=== PATIENT | female | born 1980 | race Caucasian/White ===

== ENCOUNTER 2016-07-08 16:06 | Emergency (ER) | payer BC ==
[~2016-07-08] VITALS: Ht 170.2 cm; Wt 58.1 kg
[~2016-07-08 16:06] MED LIST: CIPROFLOXACIN500 M2 ORAL
[2016-07-08] MEDS ORDERED: WP THYROID81.25 MG PO (17:19)
[2016-07-08] MEDS ORDERED: IBUPROFEN600 MG ORAL (17:57)
[2016-07-08 18:11] VITALS: BP 95/64
--- NOTE | 2016-07-08 21:52 | Emergency Room Report ---
History of Present Illness General Chief Complaint: Laceration Source: Patient, Medical Record Present Illness HPI The patient is a 36-year-old female presenting with left fourth finger laceration which occurred last night. The patient states that she was cutting in the kitchen and the knife slipped. Patient noticed bleeding to the area. Pain is now describes a 4/10 dull ache and does not radiate. Pain worse with touch. Patient does admit to slight numbness to the area. The patient denies prior injury to this area. Patient denies any other injury or any other symptoms including N, V, F, chills Allergies: Coded Allergies: SULFA (SULFONAMIDE ANTIBIOTICS) (Verified Allergy, Unknown, 07/08/16) Patient History Past Medical History: see triage record Pertinent Family History: none Last Menstrual Period: 06/18/2016 Now: No : 0 Para: 0 Reviewed Nursing Documentation: PMH: Agreed, PSxH: Agreed Review of Systems All Other Systems: negative except mentioned in HPI Physical Exam Vital Signs Date Time Temp Pulse Resp B/P Pulse Ox O2 Delivery O2 Flow Rate FiO2 07/08/16 17:13 98.1 66 16 112/71 100 Room Air Sp02 EP Interpretation: reviewed, normal General Appearance: no apparent distress, alert, GCS 15, non-toxic Head: normocephalic, atraumatic Eyes: bilateral eye PERRL, bilateral eye normal inspection ENT: hearing grossly normal, normal pharynx, no angioedema, normal voice Neck: full range of motion, supple/symm/no masses Musculoskeletal: back normal, gait/station normal, normal range of motion, non- tender, tender - TTP over the L 4th digit Neurologic: alert, oriented x3, responsive, motor strength/tone normal, sensory intact, speech normal Psychiatric: judgement/insight normal, memory normal, mood/affect normal, no suicidal/homicidal ideation Skin: laceration - 1cm linear laceration to distal 4th digit palmar surface Lymphatic: no adenopathy Procedures Laceration/Wound Repair Laceration/Wound Repair : Consent: Verbal Wound Location: upper extremity Wound's Depth, Shape: superficial Wound Length (cm): 1 Wound Explored: clean Irrigated w/ Saline (ccs): 100 Betadine Prep?: Yes Wound Debrided: minimal Wound Repaired With: Dermabond Layer Closure?: No Sterile Dressing Applied?: Yes Splint Applied?: No Sling Applied?: No Patient Tolerated: Well Complications: None Medical Decision Making PA Attestation Dr. Siu is my supervising physician. Patient management was discussed with my supervising physician Diagnostic Impression: Primary Impression: Laceration of finger ER Course The patient is a 36-year-old female presenting with left fourth finger laceration which occurred last night. Ddx considered include but not limited to fracture, tendon/ligament injury, avulsion, nerve damage Physical exam: Vitals are within normal limits. No apparent distress Left fourth digit: Is a 1 cm linear laceration to the distal palmar surface. Sensation intact to light touch. Tender to palpation over this area. No bleeding. The wound is cleaned thoroughly with Betadine and normal saline. Was repaired with Dermabond. Well approximated. The patient is given a prescription for Motrin and will follow up with PMD. Patient will keep the wound clean and dry. ER precautions Last Vital Signs Date Time Temp Pulse Resp B/P Pulse Ox O2 Delivery O2 Flow Rate FiO2 07/08/16 18:11 98.4 71 17 95/64 100 Room Air Status: improved Disposition: HOME, SELF-CARE Condition: Improved Scripts Ibuprofen* (MOTRIN*) 600 Mg Tablet 600 MG ORAL Q8H Y for For Pain, #30 TAB 0 Refills Prov: ANDREW DHILLON 07/08/16 Referrals: NON PHYSICIAN (PCP) Patient Instructions: Tissue Adhesive Wound Care Additional Instructions: I discussed my findings with the patient. All questions and concerns have been answered. Treatment and medication compliance have been addressed. I advised the patient that they need to follow up with PMD in 3-5 days. Return to ED if symptoms worsen, new symptoms arise, or if needed for any reason. Patient verbalized understanding of discharge instructions. ANDREW DHILLON Jul 08, 2016 21:52
== END 2016-07-08 18:10 | disposition home or self-care (01) ==
LOC: EMR 17:50
DX: S61.215A Laceration without foreign body of left ring finger without damage to nail, initial encounter (principal); Z88.2 Allergy status to sulfonamides; W26.0XXA Contact with knife, initial encounter; Y92.000 Kitchen of unspecified non-institutional (private) residence as the place of occurrence of the external cause; Y99.8 Other external cause status